=== PATIENT | female | born 1955 | race Caucasian/White ===

== ENCOUNTER 2017-01-29 17:53 | Inpatient (IN) | payer MEDICAID ==
[~2017-01-29] VITALS: Ht 152.4 cm; Wt 82.6 kg
[2017-01-29 18:52] LABS: BASOPHIL % 0.4 % (0-2); PLATELET COUNT 253 x10^3mcL (130-400); RED CELL DISTRIBUTION WIDTH 14.1 % (11.5-14.5)
[2017-01-29 19:01] LABS: CALCIUM 8.9 mg/dL (8.5-10.1); CARBON DIOXIDE 23.4 mmol/L (21-32); CHLORIDE SERUM 99 mmol/L (98-107); CREATININE SERUM 0.9 mg/dL (0.6-1.0); GFR1 > 60 mL/min; GLUCOSE SERUM 176 mg/dL (74-106); POTASSIUM SERUM 3.6 mmol/L (3.5-5.1); SODIUM SERUM 133 mmol/L (136-145)
[2017-01-29 19:08] LABS: ALKALINE PHOSPHATASE 116 U/L (46-116); ALT/SGPT 35 U/L (14-59); AST/SGOT 15 U/L (15-37); BILIRUBIN TOTAL 0.58 mg/dL (0.20-1.00); C REACTIVE PROTEIN 2.1 mg/dL (<=0.9); TOTAL PROTEIN, SERUM 7.9 g/dL (6.4-8.2)
[2017-01-29 19:10] LABS: ALBUMIN 3.2 g/dL (3.4-5.0)
[2017-01-29 19:13] LABS: T3 TOTAL 0.88 ng/mL
[2017-01-29 19:17] LABS: FREE T4 1.09 ng/dL (0.76-1.46); FREE THYROXINE INDEX 3.1 ug/dL (1.4-4.5); T4(THYROXINE) 8.7 ug/dL (4.7-13.3)
[2017-01-29 19:34] LABS: ERYTHROCYTE SED RATE 21 mm/hr (0-30)
[2017-01-29 19:38] LABS: CK-MB < 0.5 ng/mL (0-3.6); CREATINE KINASE 50 U/L (26-192)
[2017-01-29 19:49] LABS: microscopic required? NO
[2017-01-29 19:56] LABS: UA SPECIFIC GRAVITY 1.025 (1.005-1.035); urine erythrocyte NEGATIVE (NEGATIVE)
[2017-01-29] MEDS ORDERED: METFORMIN500 M1 PO (20:52)
[2017-01-29] MEDS ORDERED: METOPROLOL SUCC50 M2 PO (20:52)
[2017-01-29] MEDS ORDERED: LISINOPRIL PO (20:55)
[2017-01-29 21:25] LABS: CHOLESTEROL/HDL RATIO 3.3; MAGNESIUM 1.4 mg/dL (1.8-2.4)
[2017-01-29 21:26] LABS: AMPHETAMINE QUAL UR NONE DETECTED (NEG <=1000)
[2017-01-29 21:50] VITALS: BP 105/48
[2017-01-30 05:19] VITALS: BP 111/58
[2017-01-30 09:46] VITALS: BP 126/57
[2017-01-30 13:29] VITALS: BP 141/68
[2017-01-30 17:44] VITALS: BP 140/69
[2017-01-30 22:32] VITALS: BP 113/51
[2017-01-31 05:07] VITALS: BP 107/38
[2017-01-31 06:10] LABS: BASOPHIL % 0.3 % (0-2); PLATELET COUNT 223 x10^3mcL (130-400)
[2017-01-31 06:19] LABS: CALCIUM 7.9 mg/dL (8.5-10.1); CARBON DIOXIDE 24.6 mmol/L (21-32); CHLORIDE SERUM 108 mmol/L (98-107); CREATININE SERUM 0.7 mg/dL (0.6-1.0); GFR1 > 60 mL/min; GLUCOSE SERUM 132 mg/dL (74-106); PHOSPHOROUS 2.6 mg/dL (2.5-4.9); POTASSIUM SERUM 4.2 mmol/L (3.5-5.1); SODIUM SERUM 139 mmol/L (136-145)
[2017-01-31 06:57] LABS: RED CELL DISTRIBUTION WIDTH 14.9 % (11.5-14.5)
[2017-01-31 09:40] VITALS: BP 141/68
[2017-01-31 11:58] VITALS: BP 128/63
[2017-01-31 13:04] LABS: BASOPHIL % 0.3 % (0-2); PLATELET COUNT 217 x10^3mcL (130-400)
[2017-01-31 13:05] LABS: RED CELL DISTRIBUTION WIDTH 15.2 % (11.5-14.5)
[2017-01-31 17:00] VITALS: BP 134/64
[2017-01-31 21:44] VITALS: BP 136/63
[2017-02-01 04:49] VITALS: BP 153/77
[2017-02-01 06:09] LABS: CALCIUM 8.3 mg/dL (8.5-10.1); CARBON DIOXIDE 25.7 mmol/L (21-32); CHLORIDE SERUM 105 mmol/L (98-107); CREATININE SERUM 0.7 mg/dL (0.6-1.0); GFR1 > 60 mL/min; GLUCOSE SERUM 134 mg/dL (74-106); MAGNESIUM 1.8 mg/dL (1.8-2.4); POTASSIUM SERUM 4.1 mmol/L (3.5-5.1); SODIUM SERUM 139 mmol/L (136-145)
[2017-02-01 06:20] LABS: BASOPHIL % 0.2 % (0-2); PLATELET COUNT 225 x10^3mcL (130-400)
[2017-02-01 06:26] LABS: RED CELL DISTRIBUTION WIDTH 14.6 % (11.5-14.5)
[2017-02-01 08:00] VITALS: BP 116/49
[2017-02-01] MEDS ORDERED: ATORVASTATIN CA40 M1 PO (11:33)
[2017-02-01] MEDS ORDERED: NORCO1 TA2 PO ×2 (11:33→12:10)
[2017-02-01 13:02] VITALS: BP 147/71
[2017-02-01 13:03] VITALS: BP 116/49
[2017-02-01 13:05] VITALS: BP 116/49
== END 2017-02-01 14:36 | disposition home or self-care (01) | DRG 710 ==
LOC: ED 17:53 → DU 20:47
PROVIDERS: Specialist; Surgery; ADMIT Family Medicine Sports Medicine
PROC: 0DNW4ZZ Release Peritoneum, Percutaneous Endoscopic Approach (ICD-10-PCS; 2017-01-30)
PROC: 0FT44ZZ Resection of Gallbladder, Percutaneous Endoscopic Approach (ICD-10-PCS; principal; 2017-01-30 10:00)
DX: A41.9 Sepsis, unspecified organism (principal); D68.69 Other thrombophilia; E11.59 Type 2 diabetes mellitus with other circulatory complications; E44.0 Moderate protein-calorie malnutrition; K80.00 Calculus of gallbladder with acute cholecystitis without obstruction; E11.65 Type 2 diabetes mellitus with hyperglycemia; R65.20 Severe sepsis without septic shock; E87.1 Hypo-osmolality and hyponatremia; E83.42 Hypomagnesemia; K76.0 Fatty (change of) liver, not elsewhere classified; I10 Essential (primary) hypertension; E78.5 Hyperlipidemia, unspecified; D64.9 Anemia, unspecified; Z68.35 Body mass index [BMI] 35.0-35.9, adult; Z79.84 Long term (current) use of oral hypoglycemic drugs
CPT/HCPCS: 36600; 82962; 83880; 84439; 90658; 94150; J0330; J1885; J2250; J2405; J2543; J2704; J2710; J3010; J3475; J3490; J7030; J7040; Q0092

== ENCOUNTER 2018-09-04 10:28 | Emergency (ER) | payer MEDICAID ==
[~2018-09-04] VITALS: Ht 160 cm; Wt 83.2 kg
[~2018-09-04 10:28] MED LIST: ATORVASTATIN CA40 M1 PO; LISINOPRIL PO; METFORMIN500 M1 PO; METOPROLOL SUCC50 M2 PO; NORCO1 TA2 PO
[2018-09-04 10:34] VITALS: Ht 160 cm; Wt 83.2 kg
[2018-09-04 13:12] VITALS: BP 118/61
== END 2018-09-04 13:12 | disposition home or self-care (01) ==
LOC: ED 10:28
DX: R42 Dizziness and giddiness (principal); K29.70 Gastritis, unspecified, without bleeding; E11.9 Type 2 diabetes mellitus without complications; I10 Essential (primary) hypertension
CPT/HCPCS: 82962; J8597; Q0162

== ENCOUNTER 2019-04-06 19:23 | Emergency (ER) | payer MEDICAID ==
[~2019-04-06] VITALS: Ht 157.5 cm; Wt 80.3 kg
[2019-04-06 19:39] VITALS: Ht 157.5 cm; Wt 80.3 kg
[2019-04-06 21:40] LABS: BASOPHIL % 0.4 % (0-2); PLATELET COUNT 330 x10^3mcL (130-400)
[2019-04-06 21:42] LABS: RED CELL DISTRIBUTION WIDTH 14.6 % (11.5-14.5)
[2019-04-06 21:55] LABS: CARBON DIOXIDE 28.6 mmol/L (21-32); CHLORIDE SERUM 99 mmol/L (98-107); CREATININE SERUM 0.9 mg/dL (0.6-1.0); GFR1 > 60 mL/min; GLUCOSE SERUM 257 mg/dL (74-106); POTASSIUM SERUM 4.3 mmol/L (3.5-5.1); SODIUM SERUM 137 mmol/L (136-145)
[2019-04-06 21:59] LABS: ALBUMIN 3.5 g/dL (3.4-5.0); ALKALINE PHOSPHATASE 99 U/L (46-116); ALT/SGPT 38 U/L (14-59); AST/SGOT 12 U/L (15-37); BILIRUBIN TOTAL 0.2 mg/dL (0.20-1.00); LIPASE 167 IU/L (73-393); TOTAL PROTEIN, SERUM 7.9 g/dL (6.4-8.2)
[2019-04-07 00:54] VITALS: BP 151/67
== END 2019-04-07 00:55 | disposition home or self-care (01) ==
LOC: ED 19:23
PROVIDERS: Emergency Medicine
DX: R51 Headache (principal); I10 Essential (primary) hypertension; E11.65 Type 2 diabetes mellitus with hyperglycemia; R10.13 Epigastric pain
CPT/HCPCS: 36415

== ENCOUNTER 2019-05-16 20:52 | Emergency (ER) | payer MEDICAID ==
[~2019-05-16] VITALS: Ht 157.5 cm; Wt 78.9 kg
[2019-05-16 21:13] VITALS: BP 109/73; Ht 157.5 cm; Wt 78.9 kg
== END 2019-05-16 22:50 | disposition home or self-care (01) ==
LOC: ED 20:52
DX: J11.1 Influenza due to unidentified influenza virus with other respiratory manifestations (principal); I10 Essential (primary) hypertension; E11.9 Type 2 diabetes mellitus without complications
CPT/HCPCS: 87804

== ENCOUNTER 2019-05-31 13:16 | Emergency (ER) | payer MEDICAID ==
[~2019-05-31] VITALS: Ht 152.4 cm; Wt 76.2 kg
[2019-05-31 13:39] VITALS: Ht 152.4 cm; Wt 76.2 kg
[2019-05-31 14:44] LABS: CALCIUM 8.8 mg/dL (8.5-10.1); CARBON DIOXIDE 30.2 mmol/L (21-32); CREATININE SERUM 1.1 mg/dL (0.6-1.0); POTASSIUM SERUM 3.7 mmol/L (3.5-5.1)
[2019-05-31 14:48] LABS: BASOPHIL % 0.5 % (0-2); PLATELET COUNT 366 x10^3mcL (130-400); RED CELL DISTRIBUTION WIDTH 14.4 % (11.5-14.5)
[2019-05-31 14:49] LABS: ALBUMIN 3.4 g/dL (3.4-5.0); BILIRUBIN TOTAL 0.4 mg/dL (0.20-1.00); TOTAL PROTEIN, SERUM 7.7 g/dL (6.4-8.2)
[2019-05-31 18:03] VITALS: BP 129/73
== END 2019-05-31 18:03 | disposition home or self-care (01) ==
LOC: ED 13:16
PROVIDERS: Student in an Organized Health Care Education/Training Program
DX: B34.9 Viral infection, unspecified (principal); I10 Essential (primary) hypertension; E11.9 Type 2 diabetes mellitus without complications
CPT/HCPCS: 36415; 87804; Q0162